=== PATIENT | female | born 1975 | race Asian ===

== ENCOUNTER 2018-09-13 20:21 | Emergency (ER) | payer OTHER, BC ==
[~2018-09-13] VITALS: Ht 154.9 cm; Wt 61.7 kg
[2018-09-13 20:31] VITALS: Ht 154.9 cm; Wt 61.7 kg
[2018-09-13 23:51] VITALS: BP 160/102
== END 2018-09-14 00:18 | disposition home or self-care (01) ==
LOC: ED 20:21
DX: I10 Essential (primary) hypertension (principal); E11.9 Type 2 diabetes mellitus without complications